=== PATIENT | male | born 1995 | race African-American/Black ===

== ENCOUNTER 2022-03-28 01:42 | Inpatient (IN) | payer MEDICAID ==
[~2022-03-28] VITALS: Ht 167.6 cm; Wt 89.7 kg
[2022-03-28 02:53] LABS: COVID AG,FIA SOURCE NASOPHARYNGEAL
[2022-03-28 02:56] LABS: BASOPHILS % (AUTO) 0.6 % (0.0-2.0); EOSINOPHILS % (AUTO) 3.6 % (1.0-6.0); HEMATOCRIT 43.9 % (41-53); HEMOGLOBIN 14.6 g/dL (13.5-17.5); LYMPHOCYTES # (AUTO) 2.9 K/uL (1.0-4.8); LYMPHOCYTES % (AUTO) 35.3 % (22.0-44.0); MEAN CORPUSCULAR HEMOGLOBIN 29.5 pg (26.0-34.0); MEAN CORPUSCULAR HGB CONC 33.3 G/dL (31.0-37.0); MEAN CORPUSCULAR VOLUME 88 fL (80-100); MONOCYTES # (AUTO) 0.9 K/uL (0.1-1.0); MONOCYTES % (AUTO) 10.7 % (2.0-9.0); NEUTROPHILS # (AUTO) 4.1 K/uL (1.8-7.7); NEUTROPHILS % (AUTO) 49.8 % (40.0-70.0); PLATELET COUNT (AUTO) 191 K/uL (150-450); RED BLOOD CELL COUNT(AUTO) 4.97 MIL/uL (4.50-5.90); RED CELL DISTRIBUTION WIDTH 13.4 % (11.5-14.5)
[2022-03-28 03:08] LABS: ANION GAP 7 mmol/L (8-16); CALCIUM, TOTAL 9.8 mg/dL (8.8-10.5); CARBON DIOXIDE 25 mmol/L (22-29); CHLORIDE 102 mmol/L (98-107); CREATININE 0.94 mg/dL (0.60-1.30); GLUCOSE,RANDOM 97 mg/dL (70-110); POTASSIUM 3.8 mmol/L (3.5-5.1); SODIUM SERUM 134 mmol/L (136-145); UREA NITROGEN, BLOOD 20 mg/dL (7-18)
[2022-03-28 03:11] LABS: GLOMERULAR FILTR. RATE CALC > 60 mL/min (>60)
[2022-03-28 03:13] LABS: ALANINE AMINOTRANSFERASE 27 U/L (12-78); ALKALINE PHOSPHATASE 112 U/L (46-116); ASPARTATE AMINOTRANSFERASE 21 U/L (15-37); BILIRUBIN,TOTAL 0.3 mg/dL (0.1-1.0); TOTAL PROTEIN, SERUM 8.2 g/dL (6.4-8.2)
[2022-03-28] MEDS ORDERED: LORazepam 2 MG TABLET PO PRN (10:00)
[2022-03-28] MEDS ORDERED: HALOPERIDOL 5 MG TABLET PO PRN (10:00)
[2022-03-29 02:02] VITALS: BP 122/78
[2022-03-29 09:04] VITALS: BP 105/69
[2022-03-29] MEDS ORDERED: IBUPROFEN 400 MG TABLET PO PRN (15:15)
[2022-03-29] MEDS ORDERED: MAG HYDROX/AL HYDROX/SIMETH ES 30 ML SUSPENSION UDCUP PO PRN (15:15)
[2022-03-29] MEDS ORDERED: ALBUTEROL SULFATE HFA 90 MCG/PUFF 8 GM INHALER IH PRN (15:15)
[2022-03-29] MEDS ORDERED: LOPERAMIDE HCL 2 MG CAPSULE PO PRN (15:15)
[2022-03-29] MEDS ORDERED: ACETAMINOPHEN 325 MG TABLET PO PRN (15:15)
[2022-03-29] MEDS ORDERED: CloNIDine HCL 0.1 MG TABLET PO PRN (15:15)
[2022-03-29] MEDS ORDERED: NICOTINE 14 MG/24 HOUR PATCH TD PRN (15:15)
[2022-03-29] MEDS ORDERED: PETROLATUM,WHITE 28 GM JELLY TP PRN (15:15)
[2022-03-29] MEDS ORDERED: DOCUSATE SODIUM 100 MG CAPSULE PO PRN (15:15)
[2022-03-29] MEDS ORDERED: MAGNESIUM HYDROXIDE SUSPENSION 30 ML UDCUP PO PRN (15:15)
[2022-03-29] MEDS ORDERED: ONDANSETRON HCL 4 MG TABLET PO PRN (15:15)
[2022-03-29] MEDS ORDERED: GuaiFENesin/D-METHORPHAN [SUGAR-FREE] 200-20MG/10 ML SYRUP UDCUP PO PRN (15:15)
[2022-03-29 16:15] VITALS: BP 105/62
[2022-03-29] MEDS: LevETIRAcetam 500 MG TABLET PO SCH (21:11)
[2022-03-29] MEDS: ZOLPIDEM TARTRATE 10 MG TABLET PO PRN (21:11)
[2022-03-30 09:24] VITALS: BP 100/57
[2022-03-30] MEDS: PALIPERIDONE 3 MG ER TABLET PO SCH (10:18)
[2022-03-30] MEDS: LevETIRAcetam 500 MG TABLET PO SCH ×2 (10:18→17:40)
[2022-03-30 16:00] VITALS: BP 97/59
[2022-03-30] MEDS: DIVALPROEX SODIUM 500 MG DR TABLET PO SCH (17:40)
[2022-03-30] MEDS ORDERED: PRAZOSIN HCL 1 MG CAPSULE PO SCH (21:00)
[2022-03-30] MEDS: ZOLPIDEM TARTRATE 10 MG TABLET PO PRN (21:18)
[2022-03-31] MEDS: DIVALPROEX SODIUM 500 MG DR TABLET PO SCH (08:32)
[2022-03-31] MEDS: PALIPERIDONE 3 MG ER TABLET PO SCH (08:32)
[2022-03-31] MEDS: LevETIRAcetam 500 MG TABLET PO SCH (08:33)
[2022-03-31 09:51] VITALS: BP 113/59
[2022-03-31] MEDS ORDERED: PALI3TAB14 PO (14:04)
[2022-03-31] MEDS ORDERED: DIVA-112 PO (14:09)
[2022-03-31] MEDS ORDERED: LEVE500T8 PO (14:09)
[2022-03-31] MEDS ORDERED: PRAZ1 PO (14:09)
[2022-04-01] MEDS ORDERED: PALI3TAB14 PO (01:46)
== END 2022-03-31 15:05 | disposition home or self-care (01) | DRG 751 ==
LOC: EMS 01:44 → 3EI 21:36
PROVIDERS: ADMIT Psychiatry & Neurology Psychiatry; ATTEND Psychiatry & Neurology Psychiatry
DX: F33.3 Major depressive disorder, recurrent, severe with psychotic symptoms (principal); I31.9 Disease of pericardium, unspecified; I42.9 Cardiomyopathy, unspecified; G40.909 Epilepsy, unspecified, not intractable, without status epilepticus; E66.9 Obesity, unspecified; Z20.822 Contact with and (suspected) exposure to COVID-19; F43.12 Post-traumatic stress disorder, chronic; F84.0 Autistic disorder; I50.9 Heart failure, unspecified; J45.909 Unspecified asthma, uncomplicated; R45.851 Suicidal ideations; Z91.041 Radiographic dye allergy status; Z88.8 Allergy status to other drugs, medicaments and biological substances; Z68.31 Body mass index [BMI] 31.0-31.9, adult
CPT/HCPCS: 80053; 85025; 99285; G0480

== ENCOUNTER 2022-04-05 14:25 | Emergency (ER) | payer MEDICAID ==
[~2022-04-05] VITALS: Ht 172.7 cm; Wt 87.3 kg
[~2022-04-05 14:25] MED LIST: DIVA-112 PO; LEVE500T8 PO; PALI3TAB14 PO; PRAZ1 PO
[2022-04-05] MEDS ORDERED: IBUPROFEN 600 MG TABLET PO ONE (15:30)
[2022-04-05 15:53] LABS: LYMPHOCYTES % (AUTO) 36.4 % (22.0-44.0); MEAN CORPUSCULAR HEMOGLOBIN 29.1 pg (26.0-34.0)
[2022-04-05 15:59] VITALS: BP 104/48
[2022-04-05 16:20] LABS: BASOPHILS % (AUTO) 0.5 % (0.0-2.0); EOSINOPHILS % (AUTO) 3.5 % (1.0-6.0); HEMATOCRIT 42.2 % (41-53); HEMOGLOBIN 13.8 g/dL (13.5-17.5); LYMPHOCYTES # (AUTO) 2.8 K/uL (1.0-4.8); MEAN CORPUSCULAR HGB CONC 32.8 G/dL (31.0-37.0); MEAN CORPUSCULAR VOLUME 89 fL (80-100); MONOCYTES # (AUTO) 0.7 K/uL (0.1-1.0); MONOCYTES % (AUTO) 9.3 % (2.0-9.0); NEUTROPHILS # (AUTO) 3.9 K/uL (1.8-7.7); NEUTROPHILS % (AUTO) 50.3 % (40.0-70.0); PLATELET COUNT (AUTO) 195 K/uL (150-450); RED BLOOD CELL COUNT(AUTO) 4.76 MIL/uL (4.50-5.90); RED CELL DISTRIBUTION WIDTH 13.1 % (11.5-14.5)
[2022-04-05 16:44] LABS: ANION GAP 7 mmol/L (8-16); CALCIUM, TOTAL 9.8 mg/dL (8.8-10.5); CARBON DIOXIDE 27 mmol/L (22-29); CHLORIDE 105 mmol/L (98-107); CREATININE 0.95 mg/dL (0.60-1.30); GLUCOSE,RANDOM 82 mg/dL (70-110); POTASSIUM 4.3 mmol/L (3.5-5.1); SODIUM SERUM 139 mmol/L (136-145); UREA NITROGEN, BLOOD 15 mg/dL (7-18)
[2022-04-05 16:54] LABS: GLOMERULAR FILTR. RATE CALC > 60 mL/min (>60)
== END 2022-04-05 17:51 | disposition home or self-care (01) ==
LOC: EMS 14:27
DX: R07.89 Other chest pain (principal); J45.909 Unspecified asthma, uncomplicated; F32.A Depression, unspecified; I11.0 Hypertensive heart disease with heart failure; I43 Cardiomyopathy in diseases classified elsewhere; F84.0 Autistic disorder
CPT/HCPCS: 71045; 80048; 84484; 85025; 93005; 99285; 36415-L1; 36415-TC

== ENCOUNTER 2022-07-04 23:41 | Emergency (ER) | payer MEDICAID ==
[~2022-07-04] VITALS: Ht 170.2 cm; Wt 72.7 kg
[2022-07-04 23:58] VITALS: BP 126/72
== END 2022-07-05 01:36 | disposition left against medical advice (07) ==
LOC: EMS 23:43
DX: Z53.21 Procedure and treatment not carried out due to patient leaving prior to being seen by health care provider (principal)
CPT/HCPCS: 99281; Z7502

== ENCOUNTER 2023-12-30 04:31 | Emergency (ER) | payer SELFPAY ==
[~2023-12-30] VITALS: Ht 172.7 cm; Wt 71.8 kg
[2023-12-30] MEDS: LevETIRAcetam 500 MG TABLET PO ONE (06:01)
[2023-12-30 06:09] LABS: BASOPHILS % (AUTO) 0.6 % (0.0-2.0); EOSINOPHILS % (AUTO) 3.3 % (1.0-6.0); HEMATOCRIT 42.1 % (41-53); HEMOGLOBIN 14.2 g/dL (13.5-17.5); LYMPHOCYTES # (AUTO) 2.2 K/uL (1.0-4.8); MEAN CORPUSCULAR HEMOGLOBIN 29.6 pg (26.0-34.0); MEAN CORPUSCULAR HGB CONC 33.8 G/dL (31.0-37.0); MEAN CORPUSCULAR VOLUME 88 fL (80-100); MONOCYTES # (AUTO) 0.5 K/uL (0.1-1.0); MONOCYTES % (AUTO) 7.3 % (2.0-9.0); NEUTROPHILS # (AUTO) 3.9 K/uL (1.8-7.7); NEUTROPHILS % (AUTO) 56.8 % (40.0-70.0); PLATELET COUNT (AUTO) 183 K/uL (150-450); RED CELL DISTRIBUTION WIDTH 13.4 % (11.5-14.5); WHITE BLOOD COUNT (AUTO) 6.8 K/uL (4.5-11.0)
[2023-12-30 06:10] VITALS: BP 125/73; PULSE 78; RESP 18; TEMP 96.8; O2SAT 99
[2023-12-30 06:15] LABS: ANION GAP 10 mmol/L (8-16); CALCIUM, TOTAL 8.6 mg/dL (8.8-10.5); CARBON DIOXIDE 27 mmol/L (22-29); CHLORIDE 103 mmol/L (98-107); CREATININE 1.04 mg/dL (0.60-1.30); GLOMERULAR FILTR. RATE CALC > 60 mL/min (>60); GLUCOSE,RANDOM 107 mg/dL (70-110); POTASSIUM 3.7 mmol/L (3.5-5.1); SODIUM SERUM 140 mmol/L (136-145); UREA NITROGEN, BLOOD 12 mg/dL (7-18)
[2023-12-30 06:24] LABS: ALCOHOL, BLOOD (SERUM) < 3 mg/dL (0-10)
== END 2023-12-30 07:06 | disposition home or self-care (01) ==
LOC: EMS 04:37 → EDSEX 04:37 → EMS 07:06
DX: F41.9 Anxiety disorder, unspecified (principal); R56.9 Unspecified convulsions; F17.210 Nicotine dependence, cigarettes, uncomplicated; Z91.010 Allergy to peanuts
CPT/HCPCS: 99283; 80048; 85025; 36415; G0480

== ENCOUNTER 2024-01-20 02:08 | Inpatient (IN) | payer MEDICAID ==
[~2024-01-20] VITALS: Ht 167.6 cm; Wt 67.9 kg
[2024-01-20 04:25] LABS: COVID AG,FIA SOURCE NASAL SWAB
[2024-01-20 04:30] LABS: BASOPHILS % (AUTO) 0.5 % (0.0-2.0); EOSINOPHILS % (AUTO) 2.2 % (1.0-6.0); HEMATOCRIT 44.1 % (41-53); HEMOGLOBIN 14.5 g/dL (13.5-17.5); LYMPHOCYTES # (AUTO) 1.8 K/uL (2.0-11.5); LYMPHOCYTES % (AUTO) 27.7 % (21.0-34.0); MEAN CORPUSCULAR HEMOGLOBIN 29.3 pg (31.0-37.0); MEAN CORPUSCULAR HGB CONC 32.9 G/dL (29.0-37.0); MEAN CORPUSCULAR VOLUME 89 fL (95-121); MONOCYTES # (AUTO) 0.5 K/uL (0.1-1.0); MONOCYTES % (AUTO) 8.3 % (2.0-9.0); NEUTROPHILS % (AUTO) 61.3 % (53.0-62.0); PLATELET COUNT (AUTO) 188 K/uL (150-450); RED BLOOD CELL COUNT(AUTO) 4.95 MIL/uL (4.00-6.60); RED CELL DISTRIBUTION WIDTH 13.6 % (11.5-14.5); WHITE BLOOD COUNT (AUTO) 6.5 K/uL (4.5-11.0)
[2024-01-20 04:41] LABS: ANION GAP 11 mmol/L (8-16); CALCIUM, TOTAL 9.2 mg/dL (8.8-10.5); CARBON DIOXIDE 24 mmol/L (22-29); CHLORIDE 104 mmol/L (98-107); CREATININE 0.87 mg/dL (0.60-1.30); GLOMERULAR FILTR. RATE CALC > 60 mL/min; GLUCOSE,RANDOM 81 mg/dL (70-110); POTASSIUM 3.7 mmol/L (3.5-5.1); SODIUM SERUM 139 mmol/L (136-145); UREA NITROGEN, BLOOD 13 mg/dL (7-18)
[2024-01-20 04:43] LABS: SARS-COV2 (COVID) ANTIGEN,FIA Negative (Negative)
[2024-01-20 04:45] LABS: ALCOHOL, URINE DRUG SCREEN NEGATIVE (NEGATIVE); AMPHET/METH SCREEN,URINE NEGATIVE (NEGATIVE); BARBITURATE SCREEN, URINE NEGATIVE (NEGATIVE); BENZODIAZEPINES SCREEN,URINE POSITIVE (NEGATIVE); CANNABINOID SCREEN,URINE NEGATIVE (NEGATIVE); COCAINE SCREEN,URINE NEGATIVE (NEGATIVE); METHADONE SCREEN, URINE NEGATIVE (NEGATIVE); OPIATE SCREEN,URINE NEGATIVE (NEGATIVE); PHENCYCLIDINE SCREEN,URINE NEGATIVE (NEGATIVE)
[2024-01-20 04:51] LABS: ALCOHOL, BLOOD (SERUM) < 3 mg/dL (0-10)
[2024-01-20] MEDS ORDERED: LevETIRAcetam 500 MG TABLET ONE (08:58)
[2024-01-20] MEDS: LevETIRAcetam 500 MG TABLET PO SCH (09:27)
[2024-01-20] MEDS: LORazepam 2 MG TABLET PO ONE (11:17)
[2024-01-20] MEDS: LORazepam 1 MG TABLET PO ONE (20:47)
[2024-01-21] MEDS ORDERED: LevETIRAcetam 500 MG TABLET PO ONE (12:15)
[2024-01-21] MEDS: ACETAMINOPHEN 325 MG TABLET PO ONE (12:58)
[2024-01-21] MEDS: LevETIRAcetam 1,000 MG in DEXTROSE 5%-WATER 100 ML IV ONE (13:14)
[2024-01-22] MEDS ORDERED: HALOPERIDOL 5 MG TABLET PO PRN (03:45)
[2024-01-22] MEDS ORDERED: LORazepam 2 MG TABLET PO PRN (03:45)
[2024-01-22] MEDS: DIVALPROEX SODIUM 500 MG DR TABLET PO SCH (10:15)
[2024-01-22] MEDS: LevETIRAcetam 250 MG TABLET PO SCH (10:22)
[2024-01-22] MEDS ORDERED: INFLUENZA VIRUS VACCINE TVS (6MO+) 2024-25/PF 45 MCG/0.5 ML SYRINGE IM. ONE (16:00)
[2024-01-22] MEDS: OLANZapine 5 MG TABLET PO SCH (20:47)
[2024-01-23 09:15] VITALS: BP 133/80; PULSE 68; RESP 18; TEMP 97.2; O2SAT 100
[2024-01-23 21:33] VITALS: BP 130/80; PULSE 68; RESP 18; TEMP 97.4; O2SAT 99
[2024-01-23] MEDS: ZOLPIDEM TARTRATE 10 MG TABLET PO PRN (21:51)
[2024-01-24 09:02] VITALS: BP 120/82; PULSE 75; RESP 16; TEMP 96.8; O2SAT 98
== END 2024-01-24 16:56 | disposition home or self-care (01) | DRG 753 ==
LOC: EMS 02:08 → EDSEX 02:08 → 3EI 01-21 23:41
PROVIDERS: ADMIT Psychiatry & Neurology Psychiatry; ATTEND Psychiatry & Neurology Psychiatry
DX: F31.9 Bipolar disorder, unspecified (principal); I42.9 Cardiomyopathy, unspecified; R45.851 Suicidal ideations; F43.10 Post-traumatic stress disorder, unspecified; Z20.822 Contact with and (suspected) exposure to COVID-19; F84.0 Autistic disorder; Z59.00 Homelessness unspecified; Z87.891 Personal history of nicotine dependence; Z91.010 Allergy to peanuts
CPT/HCPCS: 80048; 80307; 85025; 90686; 96365; 99285; G0480; J0712; J7060